=== PATIENT | female | born 1950 | race Caucasian/White ===

== ENCOUNTER 2023-01-14 22:41 | Emergency (ER) | payer MEDICARE, OTHER ==
--- NOTE | 2023-01-14 23:54 | ED Physician Documentation ---
PD HPI ABD PAIN - Stated complaint Stated Complaint: ABD PX - Chief complaint Chief Complaint: Abd Pain - History obtained from History obtained from: Patient - Additional information Additional information: patient had lumpectomy 3 days ago and post-operatively has been taking oxycodone PRN for pain. She has not had a BM since day before surgery (4 days ago), and c/o increasing abdominal bloating, urge to defecate but unable to do so. In other words, she feels constipated. She has been able to pass small amounts of gas but no stool . Denies fever, denies n/v. She stopped taking oxycodone last n ight due to the constipation. She has tried senna, stool softeners, dulcola, ex- lax, increasing PO fluids, and increasing PO fiber without relief. Review of Systems Constitutional: reports: Reviewed and negative GI: reports: Abdominal Pain (cramping, episodic), Constipation. denies: Nausea, Vomiting, Diarrhea, Bloody / black stool PD PAST MEDICAL HISTORY - Past Medical History Cardiovascular: None Respiratory: None Endocrine/Autoimmune: None GI: None [employer]: None : None HEENT: None Psych: None Musculoskeletal: Other Derm: None - Past Surgical History Past Surgical History: Yes /[employer] MECH[employer]IC: Other - Present Medications Home Medications: Ambulatory Orders Medication Instructions Recorded Confirmed Naproxen 375 mg PO BID #20 tablet 12/30/15 Oxycodone HCl/Acetaminophen 1 each PO Q6H PRN #20 tablet 12/30/15 [Percocet 5-325 mg Tablet] dexAMETHasone [Decadron] 4 mg PO DAILY #5 tablet 12/30/15 methocarbamoL [Robaxin] 500 mg PO Q6H PRN #25 tablet 12/30/15 Sodium/Potassium/Mag Sulfates 354 ml PO PRN #1 kit 01/15/23 [Suprep Bowel Prep Kit] - Allergies Allergies/Adverse Reactions: Allergies Allergy/AdvReac Type Severity Reaction Status Date / Time No Known Drug Allergies Allergy Verified 12/30/15 10:11 - Social History Does the pt smoke?: No Smoking Status: Never smoker Does the pt drink ETOH?: No Does the pt have substance abuse?: No - Immunizations Immunizations are current?: Yes PD ED PE NORMAL - Vitals Vital signs reviewed: Yes - General General: Alert and oriented X 3, No acute distress, Well developed/nourished - Abdomen Abdomen: Soft, Non tender, Non distended, Other (decreased bowel sounds) Results - Vitals Vitals: Oxygen O2 Source Room air - Rads (name of study) abd. xrays Relevant Findings:: Prelim report reviewed, See rad report PD Medical Decision Making - ED course Complexity details: reviewed results, re-evaluated patient, considered differential, d/w patient ED course: xrays are c/w constipation with large amount of stool throughout colon but not in vault (manual disimpaction does not seem feasible based on these xrays). No evidence of SBO, free air. She is given a dose of lactulose to take once she is home, and I am providing rx for bowel prep with instruction to take the prep more slowly than per label/kit instructions. Return precautions discussed as well Departure - Departure Disposition: 01 Home, Self Care Clinical Impression: Constipation Condition: Good Instructions: ED Constipation Follow-Up: BRENDA WAHL MD [Primary Care Provider] - Prescriptions: Sodium/Potassium/Mag Sulfates [Suprep Bowel Prep Kit] 354 ml PO PRN #1 kit Comments: The x-rays performed tonight do appear to be consistent with significant constipation. When you get home, I recommend that you take the lactulose that we have provided to you (this is taken orally). Unfortunately, we do not have any fleets enemas in the urgency department nor in the hospital, but consider going to a convenience store to buy 1 or 2 fleets enemas. If you are able to get a fleets enema on the way home, I would recommend that you take the lactulose and then immediately use a fleets enema. Follow the instructions that come with the bowel prep kit regarding how to prepare the medication by mixing it with water. However, YOU DO NOT NEED TO DRINK THE ENTIRE 16 OUNCE PREPARATION AT ONCE. Instead, for a gentler effect, I recommend that you drink approximately one third of the first 16 ounce preparation. If you do not have adequate results (large BM), drink another third after 30-45 minutes, and the last third another 30-45 minutes after that. If you do not have obvious and adequate results , you can use the second bottle in the same fashion, but you should wait at least 8-10 hours between the two bottles. Discharge Date/Time: 01/15/23 03:23
[2023-01-15] MEDS ORDERED: GLYCERIN PEDIATRIC SUPP PR STA (00:10)
--- NOTE | 2023-01-15 01:11 | XRAY Report ---
PROCEDURE: Abdomen Acute INDICATIONS: abdominal pain TECHNIQUE: 2 views of the abdomen were acquired. COMPARISON: None. FINDINGS: Surgical changes and devices: Surgical clips left breast region.. Chest: Lungs are clear. Heart size is normal. No pleural effusions. No pneumoperitoneum. Bowel: No pneumoperitoneum. The bowel gas pattern is normal. There is mild colonic obstipation, lef t greater than right. Soft tissues: No masses; visualized solid organ contours appear normal in size. No suspicious abdom inal calcifications. Bones: No suspicious bony abnormalities. IMPRESSION: No acute abdominal or chest pathology. Mild colonic obstipation, left greater than right. Reviewed by: Gus Brown MD on 01/15/2023 1:09 AM PDT Approved by: Gus Brown MD on 01/15/2023 1:09 AM PDT Station ID: [id number]
[2023-01-15] MEDS ORDERED: LACTULOSE 10 GM /15 ML UDC PO STA (02:53)
[2023-01-15] MEDS ORDERED: MINERAL OIL ENEMA 133 ML BOTTLE RC STA (02:53)
[2023-01-15 03:26] VITALS: BP 166/90
== END 2023-01-15 03:23 | disposition home or self-care (01) ==
LOC: ED 22:41
DX: K59.00 Constipation, unspecified (principal)
CPT/HCPCS: 74022; 99283; A9270